=== PATIENT | male | born 2000 | race Two or more races ===

== ENCOUNTER 2022-04-05 03:55 | Emergency (ER) | payer SELFPAY ==
[~2022-04-05] VITALS: Ht 170.2 cm; Wt 82.6 kg
[2022-04-05 03:57] VITALS: BP 135/82
[2022-04-05] MEDS ORDERED: WELLTAB38 PO (04:03)
[2022-04-05] MEDS ORDERED: HYDR-3363 PO (04:03)
[2022-04-05] MEDS ORDERED: PRAZ1CAP PO (04:03)
[2022-04-05] MEDS ORDERED: HYDR-3713 PO (04:05)
== END 2022-04-05 05:44 | disposition left against medical advice (07) ==
LOC: M ED 03:55
DX: Z53.29 Procedure and treatment not carried out because of patient's decision for other reasons (principal)